=== PATIENT | male | born 1955 | race Caucasian/White ===

== ENCOUNTER → 2020-01-12 | Outpatient (CLI) | payer OTHER | LOC: RAD 15:47 | PROVIDERS: ATTEND Internal Medicine Cardiovascular Disease | DX: Z13.6 Encounter for screening for cardiovascular disorders (principal); E78.00 Pure hypercholesterolemia, unspecified; I25.10 Atherosclerotic heart disease of native coronary artery without angina pectoris ==

== ENCOUNTER → 2020-01-13 | Outpatient (CLI) | payer OTHER | LOC: SJCVCIMAG 07:39 | PROVIDERS: ATTEND Internal Medicine Cardiovascular Disease | DX: I08.1 Rheumatic disorders of both mitral and tricuspid valves (principal); I49.3 Ventricular premature depolarization; I11.9 Hypertensive heart disease without heart failure; E78.00 Pure hypercholesterolemia, unspecified; F17.200 Nicotine dependence, unspecified, uncomplicated; Z79.899 Other long term (current) drug therapy ==

== ENCOUNTER → 2020-01-20 | Outpatient (CLI) | payer OTHER ==
[~2020-01-20] VITALS: Ht 165.1 cm; Wt 89.4 kg
[~2020-01-20] MED LIST: ASA81BEC PO; BYSTOLIC10 MG PO; LIPITOR40 MG PO; LOSARTAN-HCTZ1 EAC3 PO; MELOXICAM15 MG PO; SUPER THERAVIT1 EACH PO
--- NOTE | 2020-01-20 07:07 | EKG ---
[facility] [place] [address] ELECTROCARDIOGRAM REPORT Name: HUNTER STODDARD Room #: REG [facility].#: [id number] Admission: 01/20/20 Attend Phys: Reynold De Leon MD, Discharge: Date of : 51 Report #: [id number] THIS REPORT FOR: cc: Bacilio Sampson Louis D. 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: ELIDA : 1955 Requested By: Reynold De Leon Order Number: [id number] MD: Danial Guidry Measurements Intervals [place] Rate: 72 P: 4 DE: 181 QRS: 10 QRSD: 93 T: 56 QT: 390 QTc: 427 Interpretive Statements Sinus rhythm Paired ventricular premature complexes Borderline T wave abnormalities No previous ECG available for comparison Electronically Signed On 01-20-2020 7:07:28 [employer] by Danial Guidry [email or web address] <ELECTRONICALLY SIGNED> By: Danial Guidry MD, FACC 01/20/20706 3 3 Danial Guidry MD, [facility] /EPI
[2020-01-20 07:09] VITALS: BP 119/90
[2020-01-20 07:43] LABS: HEMATOCRIT 42.1 % (42.0-52.0); HEMOGLOBIN 14.7 gm/dL (14.0-18.0); MCH 33.8 pg (26.0-34.0); MCV 96.6 fL (80.0-100.0); RBC 4.35 mil/uL (4.50-6.00)
[2020-01-20 07:53] LABS: CREATININE 0.9 mg/dL (0.7-1.3)
--- NOTE | 2020-01-20 15:17 | CATHLAB ---
[facility] [place] [address] INVASIVE PROCEDURE REPORT Name: HUNTER STODDARD Room #: REG YAZAN GonzalezPoly#: [id number] Admission: 01/20/20 Attend Phys: Reynold De Leon MD, Discharge: Date of : 51 Report #: [id number] THIS REPORT FOR: cc: Bacilio Sampson Louis D. DO Mancuso, Gerald M. MD [facility] ~ APPROVED REPORT Study performed: 01/20/2020 07:15:49 Patient Details Patient Status: Out-Patient Room #: The patient is a 64 year-old male Event Personnel Reynold De Leon Sales Agent [employer], Jimmy Mason RN RN, Travis Zuniga RTR ScrubZander Alison RT(R)() Telecommunications Officer, Jhoana Wagner Monitor Procedures Performed Art Access - R femoral artery* Left Heart Cath w/or w/o Coronaries [id number] [facility] [id number] Initial Mod Sed Same Phys/QHP Gr5y 682176 42963 Mod Sed Same Phys/QHP Ea 499965 Hemostasis w/ Mynx Indication Chest pain Procedure Narrative The Right Groin^ was infiltrated with 1% Lidocaine subcutaneous anesthesia. A PINNACLE 6FR Sheath #[id number] sheath was inserted into the RFA 6F^. Coronary angiography was performed using coronary diagnostic catheters. The right coronary system was accessed and visualized with a JR4 catheter. The left coronary system was accessed and visualized with a JL4 catheter. The left ventricle was accessed and visualized with a STR PIG catheter. The patient tolerated the procedure well and there were no complications associated with the procedure. There was no hematoma. Intraoperative Conscious Sedation Sedation start time: 836 Case end Time: 909 Fentanyl 75 mcg Versed 2 mg Fluoro Time: 1.70 minutes [facility] [address] [place] [address] INVASIVE PROCEDURE REPORT Name: ARLYNHUNTER J Room #: [facility]#: [id number] Admission: 01/20/20 Attend Phys: Reynold De Leon, Discharge: Date of : 51 Report #: [id number] Dose: DAP 4916.10 cGycm2 597 mGy Contrast Type and Amount: Omnipaque 100 ml Hemodynamics The aortic pressure is 176/89 mmHg with a mean of 75 mmHg. The left ventricular pressure is 168/21 mmHg with a mean of mmHg. The left ventricular end diastolic pressure is 34 mmHg. Conclusion #1. Normal left ventricular size with ejection fraction lower limits of normal EF 50% range. #2 abdominal aortogram feels normal caliber abdominal aorta no aneurysm. Brisk distal flow. Renal arteries appear to be widely patent. #3 left main with mild ostial disease giving rise to LAD and circumflex. #4 LAD with mild irregularities 30% proximal and mid vessel mild calcification no occlusive disease. #5 circumflex OM nondominant with mild irregularity. There is an ostial circumflex of 30% #6 dominant right coronary artery with minimal plaquing no occlusive disease. Recommendations and plan: Continue aggressive risk factor modification. Patient for coronary intervention. Added beta-radha with afterload service agent for mild LV dysfunction. Probable induced by PVCs. <ELECTRONICALLY SIGNED> By: Reynold De Leon MD, FACC 01/20/20 151 16 16 Reynold De Leon MD, FACC /INF
== END | disposition home or self-care (01) ==
LOC: CATH 06:26
PROVIDERS: ATTEND Internal Medicine Cardiovascular Disease
DX: R07.9 Chest pain, unspecified (principal); I25.10 Atherosclerotic heart disease of native coronary artery without angina pectoris; I10 Essential (primary) hypertension; E78.5 Hyperlipidemia, unspecified; Z98.890 Other specified postprocedural states; Z79.899 Other long term (current) drug therapy; Z79.01 Long term (current) use of anticoagulants; Z79.82 Long term (current) use of aspirin

== ENCOUNTER → 2020-04-25 | Outpatient (CLI) | payer OTHER | LOC: SJCVC 15:00 | PROVIDERS: ATTEND Internal Medicine Cardiovascular Disease | DX: R94.31 Abnormal electrocardiogram [ECG] [EKG] (principal); R93.1 Abnormal findings on diagnostic imaging of heart and coronary circulation; I10 Essential (primary) hypertension; E78.00 Pure hypercholesterolemia, unspecified; R00.1 Bradycardia, unspecified; F17.200 Nicotine dependence, unspecified, uncomplicated; Z72.89 Other problems related to lifestyle; Z79.899 Other long term (current) drug therapy ==

== ENCOUNTER → 2021-01-02 | Outpatient (CLI) | payer OTHER | LOC: SJCVC 13:25 | PROVIDERS: ATTEND Internal Medicine Cardiovascular Disease | DX: R94.31 Abnormal electrocardiogram [ECG] [EKG] (principal); I49.3 Ventricular premature depolarization; R93.1 Abnormal findings on diagnostic imaging of heart and coronary circulation; I10 Essential (primary) hypertension; E78.00 Pure hypercholesterolemia, unspecified; E78.5 Hyperlipidemia, unspecified; F17.200 Nicotine dependence, unspecified, uncomplicated; Z72.89 Other problems related to lifestyle; Z79.82 Long term (current) use of aspirin; Z79.899 Other long term (current) drug therapy ==